=== PATIENT | female | born 1970 | race Caucasian/White ===

== ENCOUNTER → 2016-08-05 | Outpatient (CLI) | payer OTHER ==
[2016-08-05 13:33] LABS: HEMOGLOBIN 15.3 gm/dl (12.3-15.3); RED BLOOD COUNT 4.78 M/UL (4.00-5.10); WHITE BLOOD COUNT 7.7 K/UL (4.5-11.0)
[2016-08-05 13:44] LABS: BUN/CREATININE RATIO 16 (0-10)
== END ==
LOC: LAB 12:06
PROVIDERS: Nurse Practitioner
DX: R51 Headache (principal); R53.83 Other fatigue
CPT/HCPCS: 36415; 80053; 80061; 83001; 83002; 84436; 84443; 84480; 85025

== ENCOUNTER → 2020-06-02 | Outpatient (CLI) | payer OTHER ==
[~2020-06-02] MED LIST: BENADRYL 25MG C25 MG PO; KEFLEX CAP 500500 MG PO; PREDNISONE20 MG PO; ZANTAC 150 MG150 MG PO
[2020-06-02 11:11] LABS: HEMOGLOBIN 15.4 gm/dl (12.3-15.3); RED BLOOD COUNT 4.81 M/UL (4.00-5.10); WHITE BLOOD COUNT 7.7 K/UL (4.5-11.0)
[2020-06-02 11:33] LABS: BUN/CREATININE RATIO 13 (0-10)
[2020-06-04 05:11] LABS: THYROXINE (T4) 6.8 ug/dL (4.5-12.0); VITAMIN D, 25-HYDROXY 35.9 ng/mL (30.0-100.0)
== END ==
LOC: LAB 10:44
PROVIDERS: Nurse Practitioner
DX: E78.5 Hyperlipidemia, unspecified (principal); R53.83 Other fatigue
CPT/HCPCS: 36415; 80053; 80061; 84436; 84443; 84480; 85025

== ENCOUNTER → 2020-08-18 | Outpatient (CLI) | payer OTHER | LOC: LAB 13:28 | DX: E55.9 Vitamin D deficiency, unspecified (principal); E78.5 Hyperlipidemia, unspecified | CPT/HCPCS: 36415; 80061; 84450; 84460 ==

== ENCOUNTER → 2021-06-23 | Outpatient (CLI) | payer OTHER | LOC: CT 16:13 | DX: R31.9 Hematuria, unspecified (principal); N20.9 Urinary calculus, unspecified | CPT/HCPCS: 81001 ==

== ENCOUNTER → 2021-08-25 | Outpatient (CLI) | payer OTHER ==
[2021-08-25 14:33] LABS: HEMOGLOBIN 16.4 gm/dl (12.3-15.3); RED BLOOD COUNT 5.1 M/UL (4.00-5.10)
[2021-08-25 14:52] LABS: BUN/CREATININE RATIO 22 (0-10)
== END ==
LOC: LAB 12:17
PROVIDERS: Nurse Practitioner Family
DX: E78.5 Hyperlipidemia, unspecified (principal); E55.9 Vitamin D deficiency, unspecified; R53.83 Other fatigue
CPT/HCPCS: 36415; 80053; 80061; 84443; 85025